=== PATIENT | male | born 1995 | race Hispanic/Latino ===

== ENCOUNTER → 2017-10-19 | Day surgery (SDC) | payer OTHER ==
--- NOTE | 2017-10-18 12:21 | Pre Op History & Physical ---
CHIEF COMPLAINT: Nasal obstruction, nasal deformity. HISTORY OF PRESENT ILLNESS: This 22-year-old male was hit in the nose by a head while playing football. The patient resulted with nasal deformity. This happened on October 13, 2017. The patient complained of frontal and maxillary pain. He has nasal obstruction. He also complained of decreased sense of smell with lots of bleeding from the nose. By the time he was seen in the office, the bleeding has been under control. The CT scan of the facial bones showed the patient has a nasal fracture. REVIEW OF SYSTEMS: Showed no recent cardiovascular, respiratory or GI problem. PAST MEDICAL HISTORY: Patient has history of Meli's thyroiditis. PAST SURGICAL HISTORY: He has no previous surgery. ALLERGIES: HE HAS NO KNOWN ALLERGY TO MEDICATION. MEDICATIONS: He is on levothyroxine. SOCIAL HISTORY: He is a nonsmoker and a social drinker. FAMILY HISTORY: Noncontributory. PHYSICAL EXAMINATION: VITAL SIGNS: Within normal limits. EAR: Showed normal tympanic membranes bilaterally. NOSE: Showed a reversed C-shaped deformity of the nose with a deviated nasal septum to the right side about 40% of the septal spur, on the left about 30%. THROAT: Oropharynx and oral cavity showed 2+ tonsils bilaterally with Mallampati level 2. NECK: Showed no lymph node or thyroid palpable. CHEST: Showed good air entry bilaterally. CARDIOVASCULAR: Showed S1 and S2. No murmur noted. Mr. Fan has nasal obstruction, nasal deformity after trauma. The suggested treatment is closed reduction, septoplasty and other necessary procedures. Complications of procedure include but not limited to bleeding, infection, CSF leak, blindness, double vision, meningitis, septal perforation, septal hematoma, persistent nasal obstruction, persistent nasal crusting, nasal deformity, persistent recurrence of the nasal problem. The alternative would be continued observation, continued antibiotic therapy, topical nasal steroid therapy, systemic steroid therapy, decongestant and closed reduction in the office setting. The patient has elected to undergo the surgical procedure. Job#: [id number] EV cc: PATIENTS EMERGENCY ROOM IN [place]
[~2017-10-19] MED LIST: ABX PO; DEXAMETHASONE SOD PHOS INJ 4 MG/ML VIAL ONE; EPINEPHRINE HCL INJ 1 MG/ML AMP ONE; FENTANYL CITRATE/PF 100MCG/2 ML INJ ONE; LEVOTHYROXINE50 MCG PO; LIDOCAINE 1% W/EPINEPHRINE 20 ML VIAL ONE; LIDOCAINE HCL 2% LOCAL INJ 5 ML SDV VIAL INJ ONE; MIDAZOLAM HCL 2 MG/2 ML VIAL ONE; ONDANSETRON HCL INJ 2 MG/ML VIAL ONE; PROPOFOL IV EMULSION 10 MG/ML 20 ML VIAL ONE; ROCURONIUM BROMIDE 10 MG/ML 5ML VIAL ONE; SEVOFLURANE INHAL SOLN 250 ML PEN BTL ONE; SUCCINYLCHOLINE 200 MG/10 ML SYR ONE; ULTRAM 50MG50 MG PO; VIT D PO
--- OUTSIDE RECORDS SUMMARY | 2017-10-19 10:00 | XMS REPORT | Clinical Summary ---
Author Author [facility] [employer] [facility] [place] [employer] Address Unknown Phone Unavailable Care Team Providers Care Accounts Payables Clerk Name Role Phone Parmjit Robles MD PCP Allergies Active Allergy Reactions Severity Noted Date Comments No Known Drug Allergies Other (See Comments) 07/16/2015 Current Medications Prescription Sig. Disp. Refills Start End Date Status Date levothyroxine (SYNTHROID, Take 1 tablet by mouth 3 09/06/19 Active LEVOTHROID) 100 MCG daily. 16 tablet VITAMIN D2 50,000 unit Take 1 capsule by mouth 0 09/06/19 Active capsule once a week. 16 meloxicam (MOBIC) 15 mg Take 1 tablet (15 mg 15 tablet 0 06/04/19 tablet total) by mouth daily. 17 18 With food prn pain Active Problems Problem Noted Date Abnormal thyroid stimulating hormone level 07/16/2015 Meli's thyroiditis 07/16/2015 Hearing loss 07/16/2015 Loss of hair 07/16/2015 Pharyngitis 07/16/2015 Encounters Date Type Specialty Care Team Description 10/12/2017 Telephone Family Medicine Arielle Morales MA 10/12/2017 Nurse Triage Access Lucrecia Harmon RN after 10/18/2016 Immunizations Name Dates Previously Given Next Due Influenza (IM) 03/05/2015 Preservative Free Family History Medical History Relation Name Comments Hypertension Father Hypertension Mother Relation Name Status Comments Father Alive Mother Alive Social History Tobacco Use Types Packs/Day Years Used Date Never Smoker Smokeless Tobacco: Never Used Alcohol Use Drinks/Week oz/Week Comments No Sex Assigned at Date Recorded Not on file Last Filed Vital Signs Not on file Plan of Treatment Health Maintenance Due Date Last Done Comments INFLUENZA VACCINE 12/29/2017 03/05/2015 Results Not on fileafter 10/18/2016 Insurance Payer Benefit Subscriber ID Type Phone Address Plan / Group [facility] xxxxxxxxx HMO/PPO THCARE CHOICE/CHO ICE +
--- NOTE | 2017-10-19 12:51 | Operative Report ---
DATE OF PROCEDURE: October 19, 2017 CHIEF COMPLAINT: Nasal obstruction, nasal deformity. POSTOPERATIVE DIAGNOSIS: Nasal obstruction, nasal deformity. OPERATION PERFORMED: Closed reduction and septoplasty. ANESTHESIA: Anesthesiology group. INDICATIONS: This 22-year-old male has a history of nasal obstruction and nasal deformity after injury from playing football. He was noted to have a reversed C-shaped deformity of the nose with a deviated nasal septum to the left side anteriorly about 40%. It was decided that closed reduction and septoplasty would be beneficial for him. The fracture was confirmed on CT scan of the facial bone. Patient was taken to the operating room, put under general anesthesia, endotracheally intubated. The nose was injected with 1% Xylocaine with 1:100,000 epinephrine for hemostasis. Epinephrine-soaked pledget was inserted into the nose. This was subsequently removed. The septoplasty was performed first. A hemitransfixion incision was done on the left side. Mucoperichondrial flap was elevated on the left. Bony cartilage junction was encountered, and this was . Perpendicular plate of the ethmoid was transected. This was removed along with the vomer. The septal spur cartilaginous portion removed using a [place] elevator and bony spur using a 4 mm straight chisel. Quadrangular cartilage, after being freed from posterior inferior constraint, was able to swing back into the quadrangular cartilage after being freed from posterior inferior constraint and was able to swing back into midline. The hemitransfixion incision was closed using 4-0 chromic suture in the interrupted fashion. A septal whipstitch was done using 4-0 plain gut suture to reapproximate the mucoperichondrial flap and prevent septal hematoma formation. The closed reduction was undertaken. Using a [place] elevator, the fractured nasal bone was reduced. The nose was taped and a heat-sensitive cast applied. The patient tolerated the above procedure well with estimated blood loss about 20 mL. He was given 20 mg of Decadron intraoperatively. Patient was able to be transferred to the recovery room in stable condition. Job#: [id number] EV
== END | disposition home or self-care (01) ==
LOC: OR 09:57
PROVIDERS: ATTEND Otolaryngology Otolaryngology/Facial Plastic Surgery
DX: S02.2XXA Fracture of nasal bones, initial encounter for closed fracture (principal); J34.2 Deviated nasal septum; J34.89 Other specified disorders of nose and nasal sinuses; J32.0 Chronic maxillary sinusitis; E06.3 Autoimmune thyroiditis; W50.0XXA Accidental hit or strike by another person, initial encounter; Y93.61 Activity, american tackle football; Y99.8 Other external cause status
CPT/HCPCS: 21337; 30630; 88302; 88311; J0171; J1100; J2001; J2250; J2405